=== PATIENT | female | born 1940 | race Caucasian/White ===

== ENCOUNTER 2019-10-08 23:58 | Inpatient (IN) | payer MEDICARE ==
[~2019-10-08] VITALS: Ht 160 cm; Wt 88.9 kg
[2019-10-09] VITALS (8 sets, daily range): BP systolic 97–105; BP diastolic 54–64
--- NOTE | 2019-10-09 00:03 | NUR ---
PT AAOX4. BIBRA 89 FROM HOME FOR SYNCOPAL EPISODE, FALL AND R ANKLE PAIN. PER RA PT DOES NOT RECALL FALLING. SKIN WARM AND INTACT, NO LAC NOTED. VSS. AWAITING MD FOR EVAL.
--- NOTE | 2019-10-09 00:13 | NUR ---
ELECTRICIAN SUPERVISOR SUBSTATION AT BEDSIDE FOR LABS
[2019-10-09 00:22] LABS: BASOPHILS % (AUTO) 0.7 % (0.0-2.0); HEMATOCRIT 37 % (33-45); HEMOGLOBIN 11.7 g/dL (11.5-14.8); LYMPHOCYTES # (AUTO) 1.4 /CMM (0.8-4.8); LYMPHOCYTES % (AUTO) 21.9 % (20.0-44.0); MEAN CORPUSCULAR HGB CONC 32 g/dl (31.0-36.0); MEAN CORPUSCULAR VOLUME 83 fL (82-100); MONOCYTES # (AUTO) 0.5 /CMM (0.1-1.30); MONOCYTES % (AUTO) 8.6 % (2.0-12.0); NEUTROPHILS # (AUTO) 4.1 /CMM (1.8-8.9); NEUTROPHILS % (AUTO) 65.8 % (43.0-81.0); PLATELET COUNT (AUTO) 221 /CMM (150-450); RED BLOOD CELL COUNT(AUTO) 4.43 MIL/uL (4.0-5.2); WHITE BLOOD COUNT (AUTO) 6.2 K/uL (4.3-11.0)
[2019-10-09] MEDS ORDERED: IV NS 0.9% 500 ML BAG IV ONE (00:30)
--- NOTE | 2019-10-09 00:30 | NUR ---
BROUGHT TO CT
[2019-10-09 00:43] LABS: ALANINE AMINOTRANSFERASE 15 U/L (12-78); ALBUMIN 3.5 g/dL (3.4-5.0); ALKALINE PHOSPHATASE 74 U/L (46-116); ASPARTATE AMINOTRANSFERASE 14 U/L (15-37); BILIRUBIN,DIRECT 0.1 mg/dL (0.0-0.2); BILIRUBIN,TOTAL 0.5 mg/dL (0.2-1.0); CALCIUM, SERUM 8.9 mg/dL (8.5-10.1); CARBON DIOXIDE 22 mmol/L (21-32); CHLORIDE 102 mmol/L (98-107); CREATININE 1.6 mg/dL (0.6-1.3); GLUCOSE 100 mg/dL (74-106); SODIUM SERUM 140 mmol/L (136-145); TOTAL PROTEIN, SERUM 6.6 g/dL (6.4-8.2); UREA NITROGEN, BLOOD 24 mg/dL (7-18)
[2019-10-09 00:45] LABS: POTASSIUM 2.7 mmol/L (3.5-5.1)
[2019-10-09] MEDS ORDERED: POTASSIUM CHLORIDE 20 MEQ TAB.PRT.SR PO ONE ×2 (00:53→01:00)
--- NOTE | 2019-10-09 01:04 | NUR ---
PT RESTING COMFORTABLY. VSS. PROVIEDED WITH BLANKET AND WATER.
--- NOTE | 2019-10-09 01:32 | NUR ---
xray at bedside
[2019-10-09] MEDS ORDERED: HYDROCODONE/APAP 5/325MG 1 EACH TABLET ONE (01:35)
[2019-10-09] MEDS ORDERED: HYDROCODONE/APAP 5/325MG 1 EACH TABLET PO ONE (02:00)
--- NOTE | 2019-10-09 02:03 | NUR ---
PT ON THE PHONE WITH . URIEL.
[2019-10-09] MEDS ORDERED: MORPHINE SULFATE INJ 4 MG/ML DISP.SYRIN ONE (02:14)
[2019-10-09] MEDS ORDERED: ONDANSETRON HCL/PF 4 MG/2 ML VIAL ONE (02:14)
[2019-10-09] MEDS ORDERED: ONDANSETRON HCL/PF 4 MG/2 ML VIAL IVP PRN (02:30)
[2019-10-09] MEDS ORDERED: ACETAMINOPHEN 325 MG TABLET PO PRN (02:30)
[2019-10-09] MEDS ORDERED: MAG HYDROX/AL HYDROX/SIMETH 30 ML UDC PO PRN (02:30)
[2019-10-09] MEDS ORDERED: ONDANSETRON HCL/PF - ER 4 MG/2 ML VIAL IV ONE (02:30)
[2019-10-09] MEDS ORDERED: Z GUARD REMEDY 2 OZ OINT TP PRN (02:30)
[2019-10-09] MEDS ORDERED: MAGNESIUM HYDROXIDE 30 ML UDC PO PRN (02:30)
[2019-10-09] MEDS ORDERED: MORPHINE SULFATE INJ 2 MG/ML DISP.SYRIN IV ONE (02:30)
--- NOTE | 2019-10-09 02:30 | NUR ---
BED ASSIGNMENT 307-2
[2019-10-09] MEDS ORDERED: ALPR2TAB2 PO (02:40)
--- NOTE | 2019-10-09 02:45 | NUR ---
REPORT GIVEN TO MIRACLE SY FOR KARIME
--- NOTE | 2019-10-09 02:48 | NUR ---
PT TRANSFERRED PER ACLS PROTOCOL
--- NOTE | 2019-10-09 03:00 | NUR ---
ELECTRONIC COMMUNICATIONS TECHNICIANACETONE BUTTON PASTER NOTES RECEIVED FROM ER THIS 79 YO FEMALE,ALERT,ORIENTED X4,S/P SYNCOPAL EPISODE AT HOME,SUSTAINED RIGHT ANKLE FRACTURE,NOW ON HALF CAST WRAPPED WITH BROWN BANDAGE.SALINE LOCK LEFT HAND INTACT AND PATENT.NOTED MULTIPLE LESIONS ON LEFT AND RIGHT LOWER EXTREMITIES.NO KNOWN ALLERGY.ABLE TO VERBALIZED NEEDS.WITH KNOWN HISTORY OF MENINGIOMA.WITH RIGHT UPPER BACK LESIONS,S/P SKIN BIOPSY,OPEN TO AIR.BED REST FOR NOW AND NPO ORDERED.CALL LIGHT IN REACH,NEEDS ANTICIPATED.
[2019-10-09] MEDS: IV NS 0.9% 1,000 ML IV PRN ×2 (04:15→23:33)
--- NOTE | 2019-10-09 04:15 | NUR ---
TEXTILES AND CLOTHING TEACHER NOTES STARTED ON IVF NS AT 75ML/HR RATE.
[2019-10-09] MEDS: MORPHINE SULFATE INJ 2 MG/ML DISP.SYRIN IV PRN ×4 (05:57→21:14)
--- NOTE | 2019-10-09 06:38 | NUR ---
TASSEL SNIPPER NOTES SR-64 ON TELE MONITOR,PAIN MANAGEMENT EFFECTIVE.IVF IN PROGRESS.KEPT NPO ORDERED,IVF IN PROGRESS.IN NO ACUTE DISTRESS.WILL ENDORSE TO DAY NURSE FOR KARIME.
[2019-10-09 07:00] LABS: APPEARANCE,URINE CLEAR (CLEAR); BILIRUBIN,URINE NEGATIVE (NEGATIVE); BLOOD, URINE NEGATIVE Ery/uL (NEGATIVE); COLOR,URINE YELLOW (YELLOW); KETONES,URINE NEGATIVE (NEGATIVE); LEUKOCYTE ESTERASE ,URINE NEGATIVE (NEGATIVE); NITRITE, URINE NEGATIVE (NEGATIVE); PH,URINE 5.5 (5.0-8.0); PROTEIN,URINE NEGATIVE (NEGATIVE); UGLUCOSE NEGATIVE (NEGATIVE); UROBILINOGEN,URINE 0.2 EU/dL (0.2)
--- NOTE | 2019-10-09 08:00 | NUR ---
rn notes received patient at this time resting in the bed, no acute respiratory distress. patient npo, has immobilizer on right lower leg. Infusing ns at 75 ml/hr intact, call light within to reach. continued monitoring.
[2019-10-09] MEDS ORDERED: CHLO25TA2 PO (08:15)
[2019-10-09] MEDS ORDERED: METO25TA4 PO (08:15)
[2019-10-09] MEDS ORDERED: PANT40TA4 PO (08:15)
[2019-10-09 08:39] LABS: MAGNESIUM 2.4 mg/dL (1.8-2.4); PHOSPHORUS 1.4 mg/dL (2.5-4.9)
[2019-10-09 09:37] LABS: CALCIUM, SERUM 8.4 mg/dL (8.5-10.1); CREATININE 1.3 mg/dL (0.6-1.3); POTASSIUM 3.8 mmol/L (3.5-5.1)
[2019-10-09] MEDS: PANTOPRAZOLE 40 MG TABLET.DR PO SCH (09:39)
[2019-10-09] MEDS: HYDROCODONE/APAP 5/325MG 1 EACH TABLET PO PRN (09:40)
--- NOTE | 2019-10-09 09:40 | NUR ---
rn notes administered narco 5/325 mg po prn for right lower pain 10/10 per patient request, v/s taken bp97/59, p-68, r-20. also patient getting ECHO by US tech at this time.
[2019-10-09 09:43] LABS: BASOPHILS % (AUTO) 0.6 % (0.0-2.0); BILIRUBIN,TOTAL 0.6 mg/dL (0.2-1.0); EOSINOPHILS % (AUTO) 2.1 % (0.0-6.0); HEMATOCRIT 32 % (33-45); HEMOGLOBIN 10.2 g/dL (11.5-14.8); LYMPHOCYTES # (AUTO) 1.2 /CMM (0.8-4.8); MEAN CORPUSCULAR HGB CONC 33 g/dl (31.0-36.0); MEAN CORPUSCULAR VOLUME 82 fL (82-100); MONOCYTES # (AUTO) 0.6 /CMM (0.1-1.30); MONOCYTES % (AUTO) 8.9 % (2.0-12.0); NEUTROPHILS % (AUTO) 71.4 % (43.0-81.0); PHOSPHORUS 3.4 mg/dL (2.5-4.9); PLATELET COUNT (AUTO) 203 /CMM (150-450); RED BLOOD CELL COUNT(AUTO) 3.86 MIL/uL (4.0-5.2); TOTAL PROTEIN, SERUM 5.9 g/dL (6.4-8.2)
[2019-10-09 09:52] LABS: THYROID STIMULATING HORMONE 5.204 uIU/mL (0.358-3.74)
--- NOTE | 2019-10-09 10:48 | NUR ---
rn notes administered morphine sulfate 1 mg /ml iv push for right lower leg 01/30 per patient request, medication were administered previously not effective, v/s taken bp 97/64, p-67, r-18.
--- NOTE | 2019-10-09 13:21 | NUR ---
rn notes medication were administered for pain effective, seen patient by hospitalist Kaycee, plan is continued hospitalization, ortho consultation.
[2019-10-09] MEDS ORDERED: K PHOS NEUTRAL 250 MG TABLET PO ONE (14:00)
--- NOTE | 2019-10-09 15:47 | NUR ---
rn notes administered morphine sulfate 1 mg/ml iv push for right lower leg pain, 10/10 per patient request. v/s taken, bp 100.60, p70, r-18. called and left massage COURY PN for ortho consultation.
--- NOTE | 2019-10-09 18:06 | NUR ---
rn notes SEEN PATIENT BY LUIS PERLA, PATIENT WILL NOT GOING HAVE A SURGERY AT THIS TIME. NWB ON RIGHT LOWER LEG, PT. PATIENT VERBALIZED UNDERSTANDING. CALL LIGHT WITHIN TO REACH. ENDORSED ONCOMING NURSE FOLLOW PLAN OF CARE.
[2019-10-09] MEDS ORDERED: ALPRAZOLAM 1 MG TABLET PO PRN (22:00)
[2019-10-10] VITALS (9 sets, daily range): BP systolic 93–139; BP diastolic 57–115
[2019-10-10] MEDS: HYDROCODONE/APAP 5/325MG 1 EACH TABLET PO PRN ×3 (00:42→23:13)
--- NOTE | 2019-10-10 00:42 | NUR ---
MS/TELE/RN PATIENT WAS MOVED TO [facility] PER PATIENT'S REQUEST. IV WAS OCCLUDED, REMOVED AND INSERTED NEW IV AT RT. F/A G22.
--- NOTE | 2019-10-10 01:38 | NUR ---
MS/TELE/RN PATIENT IS SLEEPING AT THIS TIME, APPEAR COMFORTABLE, NO SIGNS OF DISTRESS NOTED, CALL LIGHT IN REACH. WILL CONTINUE TO MONITOR.
[2019-10-10 02:34] LABS: APPEARANCE,URINE Slightly Cloudy (CLEAR); BILIRUBIN,URINE Negative (NEGATIVE); BLOOD, URINE Negative Ery/uL (NEGATIVE); COLOR,URINE Yellow (YELLOW); KETONES,URINE Negative (NEGATIVE); LEUKOCYTE ESTERASE ,URINE Negative (NEGATIVE); NITRITE, URINE Negative (NEGATIVE); PROTEIN,URINE Negative (NEGATIVE); UGLUCOSE Negative (NEGATIVE); UROBILINOGEN,URINE 0.2 EU/dL (0.2)
[2019-10-10 03:41] LABS: CREATININE, URINE 44.9 MG/DL (30.0-125.0)
[2019-10-10 03:51] LABS: EOSINOPHIL,URINE None Seen
[2019-10-10 05:59] LABS: URINE TOTAL PROTEIN 13.6 mg/dL (0-11.9)
--- NOTE | 2019-10-10 06:09 | NUR ---
MS/TELE/RN PATIENT IS STILL SLEEPING AT THIS TIME, APPEAR COMFORTABLE, NO SIGNS OF DISTRESS NOTED, CALL LIGHT IN REACH. ALL NEEDS ATTENDED AT THIS TIME, WILL CONTINUE TO MONITOR.
[2019-10-10] MEDS ORDERED: PANTOPRAZOLE 40 MG TABLET.DR PO SCH (07:30)
--- NOTE | 2019-10-10 07:30 | NUR ---
Tele/RN Opening note Received patient in bed AO x 4, able to responds all stimuli. Pt does no c/o pain on right leg st this time. Respiratory even and unlabored in room air, skin is warm to kept clean/dry, intact IV site. Keep bed in lock with low position and elevated head of bed for secure airway. Call light within reach, will continue to monitor.
[2019-10-10] MEDS: IV NS 0.9% 1,000 ML IV PRN ×2 (08:04→23:10)
[2019-10-10] MEDS: PANTOPRAZOLE 40 MG TABLET.DR PO SCH (08:04)
[2019-10-10] MEDS: METOPROLOL SUCCINATE 25 MG TAB.SR.24H PO SCH (08:12)
--- NOTE | 2019-10-10 08:24 | NUR ---
WOUND CARE CONSULT: LIMITED ASSESSMENT DUE TO PT DENYING NEED FOR FULL ASSESSMENT OF BUTTOCKS. RT LOWER LEG NOTED TO HAVE ORTHO WRAP WHICH IS DRY AND INTACT. UPPER BACK HAS HEALED AREA, S/P BIOPSY PER PT REPORT. NO DRAINAGE NOTED. PT WILL FOLLOW UP WITH HER ELECTRONICS UTILITY WORKER AFTER DISCHARGE. WILL SEE PRN. CURRENT WALLACE SCORE IS 17.
[2019-10-10 08:43] LABS: BASOPHILS % (AUTO) 0.5 % (0.0-2.0); EOSINOPHILS % (AUTO) 2.2 % (0.0-6.0); HEMATOCRIT 31 % (33-45); HEMOGLOBIN 9.8 g/dL (11.5-14.8); LYMPHOCYTES # (AUTO) 1.2 /CMM (0.8-4.8); LYMPHOCYTES % (AUTO) 21.6 % (20.0-44.0); MEAN CORPUSCULAR HGB CONC 32 g/dl (31.0-36.0); MEAN CORPUSCULAR VOLUME 82 fL (82-100); MONOCYTES # (AUTO) 0.6 /CMM (0.1-1.30); MONOCYTES % (AUTO) 11.1 % (2.0-12.0); NEUTROPHILS # (AUTO) 3.6 /CMM (1.8-8.9); NEUTROPHILS % (AUTO) 64.6 % (43.0-81.0); PLATELET COUNT (AUTO) 170 /CMM (150-450); RED BLOOD CELL COUNT(AUTO) 3.77 MIL/uL (4.0-5.2); WHITE BLOOD COUNT (AUTO) 5.6 K/uL (4.3-11.0)
[2019-10-10] MEDS ORDERED: Medication Not On Formulary EA (Chlorthalidone 12.5 MG) PO SCH (09:00)
[2019-10-10 09:51] LABS: ALANINE AMINOTRANSFERASE 14 U/L (12-78); ALBUMIN 2.9 g/dL (3.4-5.0); ALKALINE PHOSPHATASE 80 U/L (46-116); ASPARTATE AMINOTRANSFERASE 11 U/L (15-37); BILIRUBIN,TOTAL 0.7 mg/dL (0.2-1.0); CALCIUM, SERUM 8.1 mg/dL (8.5-10.1); CARBON DIOXIDE 30 mmol/L (21-32); CHLORIDE 105 mmol/L (98-107); CREATININE 1.3 mg/dL (0.6-1.3); GLUCOSE 91 mg/dL (74-106); MAGNESIUM 2.1 mg/dL (1.8-2.4); PHOSPHORUS 2.4 mg/dL (2.5-4.9); POTASSIUM 3.6 mmol/L (3.5-5.1); SODIUM SERUM 140 mmol/L (136-145); TOTAL PROTEIN, SERUM 5.7 g/dL (6.4-8.2); UREA NITROGEN, BLOOD 15 mg/dL (7-18)
[2019-10-10] MEDS ORDERED: K PHOS NEUTRAL 250 MG TABLET PO ONE (11:00)
[2019-10-10 12:33] LABS: CHOLESTEROL 193 mg/dL (<200); HDL CHOLESTEROL 92 mg/dL (40-60); LDL 103 mg/dL (0-99); THYROID STIMULATING HORMONE 2.412 uIU/mL (0.358-3.74); TRIGLYCERIDES 99 mg/dL (30-150)
[2019-10-10] MEDS: MORPHINE SULFATE INJ 2 MG/ML DISP.SYRIN IV PRN ×3 (13:15→20:33)
[2019-10-10 13:33] LABS: CREATINE KINASE, TOTAL 87 U/L (26-192)
[2019-10-10] MEDS: SOD FERRIC GLUC 125 MG in IV NS 0.9% 100 ML IV SCH (14:57)
--- NOTE | 2019-10-10 18:00 | NUR ---
Tele/RN Closing note Patient in bed comfortably, does no c/o pain or discomfort at this time, skin is warm to touch, clean/dry, intact IV site. Respiratory even and unlabored in room air. Keep bed in lock with low position and elevated HOB for secure airway. Calll light within reach, will endorse hairspring adjuster.
--- NOTE | 2019-10-10 20:10 | NUR ---
rn notes: pt insisted to use bed side commode,despite providing education that she cannot put weight on right ankle, leg, pt stated she's not comfortable voiding while in bed. offered bed bangura. education provided to pt. pt uses bed side commode with assist of 2rn.
--- NOTE | 2019-10-10 20:40 | NUR ---
PATIENT ACCESS SPECIALIST NOTE: PRN MORPHINE 1mg IV Push administered per patient complain of pain. Patient pain is on the right leg, she rates it a 9/10. Describes it as aching, throbbing, sharp. Will continue to monitor and reassess.
--- NOTE | 2019-10-10 23:15 | NUR ---
CLOTH BRUSHING AND SUEDING SUPERVISOR NOTE: Patient complains of right leg pain. Patient rates pain 7 on a 0 - 10 scale. Describes pain as throbbing, aching, and sharp. Administered PRN [place] per order. Will monitor.
[2019-10-11 02:30] VITALS: BP 133/71
[2019-10-11] MEDS: MORPHINE SULFATE INJ 2 MG/ML DISP.SYRIN IV PRN ×2 (02:43→08:40)
--- NOTE | 2019-10-11 02:48 | NUR ---
HOSTESS PARTY SALES REPRESENTATIVE NOTES PATIENT COMPLAINT OF 9/10 LEG PAIN; PATIENT REQUESTING PAIN MEDICATION, MORPHINE 1MG IV; MED ADMINISTERED PER MD ORDER; VITAL SIGNS STABLE; WILL INFORM PRIMARY NURSE MIRACLE LONG; WILL CONT TO MONITOR
[2019-10-11 04:00] VITALS: BP 110/85
--- NOTE | 2019-10-11 06:57 | NUR ---
end of shift report: received report from leah junior at 1910 last night. pt is a/o x4, on ra, respirations even and unlabored, iv access patent and flushing well, on hl, no s/s of iv infiltration notred. on tele monitoring sinus rhythm hr 73. prn morphine administered for c/o severe pain and norco for moderate pain. orthostatic bp taken. right leg bandage/splint remains in placed. left leg offloaded on pillows. pt uses bed bangura throughout the night, but initially at 1999, she prefers using bed side commode, informed pt she needs to comply for nwb rle due to ankle fracture. vs remains stable, needs attended. safety precautions for fall remains engaged, call light in reach, will endorse to day rn for continuity of care.
--- NOTE | 2019-10-11 07:30 | NUR ---
Received report from day shift RN. Patient in bed, appears anxious and irritable. Patient asking what is the plan for today and her discharge date. Informed patient regarding her care and assisted to the bedside commode. All needs attended. Safety measures intact. Will cont to monitor
[2019-10-11 08:00] VITALS: BP 157/87
[2019-10-11] MEDS: PANTOPRAZOLE 40 MG TABLET.DR PO SCH (08:29)
[2019-10-11] MEDS: IV NS 0.9% 1,000 ML IV PRN (08:37)
[2019-10-11] MEDS: METOPROLOL SUCCINATE 25 MG TAB.SR.24H PO SCH (08:37)
[2019-10-11 13:06] LABS: PTH, INTACT 139 pg/mL (15-65)
[2019-10-11] MEDS: SOD FERRIC GLUC 125 MG in IV NS 0.9% 100 ML IV SCH (13:35)
[2019-10-11] MEDS: HYDROCODONE/APAP 5/325MG 1 EACH TABLET PO PRN ×2 (13:36→20:15)
[2019-10-11] MEDS ORDERED: IV NS 0.9% 1,000 ML IV ONE (14:30)
[2019-10-11 16:00] VITALS: BP 143/83
--- NOTE | 2019-10-11 19:32 | NUR ---
Closing RN note Patient in bed, not in acute distress. IV intact, with NS @ 90ml/hr. Patient denies any pain or discomfort. Spoke to patients spouse and updated regarding plan of care. All needs attended. Safety measures intact. Report given to oncoming nurse MIRACLE Lujan.
[2019-10-11 20:00] VITALS: BP 144/87
[2019-10-11 20:15] VITALS: BP 133/80
--- NOTE | 2019-10-11 20:15 | NUR ---
CHAIRMAN AND CEO NOTE: Patient complains of pain on her right leg. Patient rates pain 5 on a 0-10 numeric scale. Patient describes pain as Aching and sharp. Administered PRN [place] per order.
--- NOTE | 2019-10-11 20:36 | NUR ---
UNDERCOVER AGENT NOTE: Notified Epic bell spinner sousaphones hospitalist regarding patient's refusal for IV reinsertion. Patient refusing to have new IV stating she has good oral intake, refusing IV fluid, and she will be going home in the morning. Patient prefers [place] over Morphine.
[2019-10-12] VITALS: BP 100/68
[2019-10-12 05:00] VITALS: BP 109/68
[2019-10-12 05:15] VITALS: BP 113/83
[2019-10-12] MEDS: HYDROCODONE/APAP 5/325MG 1 EACH TABLET PO PRN (05:42)
--- NOTE | 2019-10-12 05:51 | NUR ---
RETAIL SPECIALIST NOTE: Patient complains of right leg pain. Patient rates pain a 7 on a 0-10 scale. Patient describes pain as aching, throbbing, and sharp. Administered PRN [place] per order.
--- NOTE | 2019-10-12 06:58 | NUR ---
LIQUOR MERCHANT CLOSING NOTE: Received patient report from RNAlva, this morning at 1905. Patient is Alert Oriented X4. On tele monitoring. Patient SR with HR 60. Patient respiration is unlabored and even. Patient complained of pain on IV site. Assessed mild redness. Removed IV but patient refused reinsertion. Education patient on pros and cons of IV access. Patient complained of pain. Administered PRN [place] for moderate pain at 2015 per order. Administered [place] at 2148 per order to aid in sleep. Orthostatic BP taken. Right leg bandage and splint remain intact. Patient vital sign is stable. Needs attended to. Safety precaution is in place; bed in lowest position, side rails x 2 up, bed brakes on, and call light is within reach. Will endorse continuity of care to day nurse.
[2019-10-12 08:00] VITALS: BP 130/86
--- NOTE | 2019-10-12 08:00 | NUR ---
RN NOTES RECEIVED PATIENT IN THE BED A/O X3/4 , NO ACUTE RESPIRATORY DISTRESS, V/S STABLE, ADMINISTERED SCHEDULED MEDICATION, REFUSED PAIN AT THIS TIME. PATIENT WILL DISCHARGE HOME VIA HOSPITALIST. CALL LIGHT WITHIN TO REACH, CONTINUED MONITORING.
[2019-10-12] MEDS ORDERED: HYDR-4384 PO (08:57)
[2019-10-12] MEDS ORDERED: PANT40TA2 PO (08:57)
[2019-10-12] MEDS: PANTOPRAZOLE 40 MG TABLET.DR PO SCH (09:00)
[2019-10-12] MEDS: LOSARTAN POTASSIUM 50 MG TABLET PO SCH ×2 (09:00→09:01)
[2019-10-12 09:01] VITALS: BP 130/86
[2019-10-12] MEDS: METOPROLOL SUCCINATE 25 MG TAB.SR.24H PO SCH (09:01)
--- NOTE | 2019-10-12 12:39 | NUR ---
rn notes administered Tylenol 650 mg po prn for right leg pain.
--- NOTE | 2019-10-12 12:54 | NUR ---
prosthetist notes PATIENT DISCHARGE HOME AT THIS TIME WITH HOME HEALTH. PATIENT STABLE, V/S TAKEN BP-110/82, P-87. REFUSED PAIN, NO ACUTE RESPIRATORY DISTRESS. MED RECONCILIATION AND DISCHARGE ORDER REVIEWED AND EXPLAINED TO THE PATIENT . PATIENT VERBALIZED UNDERSTANDING. PATIENT SIGN PAPERWORK, WILL FOLLOW PRIMARY MD, AND FOLLOW ORTHO . PATIENT REFUSED PICTURE TO BE TAKEN. PATIENT 'S MEDICATION SANDED ELECTRONICALLY BY JOB JOHNSON. PATIENT PSYCHOLOGY TEACHER BY AMBULANCE.
[2019-10-13 14:16] LABS: *SPE A/G RATIO 1.2 (0.7-1.7); *SPE ALBUMIN 2.9 g/dL (2.9-4.4); *SPE ALPHA-1-GLOBULIN 0.3 g/dL (0.0-0.4); *SPE ALPHA-2-GLOBULIN 0.8 g/dL (0.4-1.0); *SPE BETA GLOBULIN 0.9 g/dL (0.7-1.3); *SPE GLOBULIN, TOTAL 2.5 g/dL (2.2-3.9); *SPE M-SPIKE Not Observed g/dL (Not Observed); *SPEGAMMA GLOBULIN 0.5 g/dL (0.4-1.8)
== END 2019-10-12 13:00 | disposition home health service (06) | DRG 308 ==
LOC: ER 10-09 00:01 → TELE 10-09 02:36
PROVIDERS: ADMIT Internal Medicine; ATTEND Nurse Practitioner Acute Care
DX: I49.9 Cardiac arrhythmia, unspecified (principal); N17.0 Acute kidney failure with tubular necrosis; I49.5 Sick sinus syndrome; S82.451A Displaced comminuted fracture of shaft of right fibula, initial encounter for closed fracture; S82.54XA Nondisplaced fracture of medial malleolus of right tibia, initial encounter for closed fracture; W19.XXXA Unspecified fall, initial encounter; Y92.9 Unspecified place or not applicable; Z98.890 Other specified postprocedural states; I25.10 Atherosclerotic heart disease of native coronary artery without angina pectoris; Z79.899 Other long term (current) drug therapy; E87.6 Hypokalemia; D63.8 Anemia in other chronic diseases classified elsewhere; E86.9 Volume depletion, unspecified; I12.9 Hypertensive chronic kidney disease with stage 1 through stage 4 chronic kidney disease, or unspecified chronic kidney disease; I48.91 Unspecified atrial fibrillation; N18.2 Chronic kidney disease, stage 2 (mild); I70.0 Atherosclerosis of aorta; I67.2 Cerebral atherosclerosis
CPT/HCPCS: 36415; 70450-TC; 71045-TC; 73610-TC; 80048-TC; 80053-TC; 80061-TC; 80076-TC; 81000-TC; 82550-TC; 82570-TC; 82728-TC; 83540-TC; 83735-TC; 83970; 84100-TC; 84155; 84155-TC; 84165; 84300-TC; 84439-TC; 84443-TC; 84484-TC; 85025-TC; 85730-TC; 86850-TC; 87081-TC; 93307-TC; 93880-TC; 97530-TC; G0378; J2270; J2405; J2916; J7030; J7040